=== PATIENT | female | born 1935 | race Caucasian/White ===

== ENCOUNTER 2022-04-28 10:54 | Outpatient (CLI) | payer MEDICARE, OTHER | END 2022-04-28 10:55 | disposition home or self-care (01) | LOC: BICRAD 10:54 | PROVIDERS: ATTEND Nurse Practitioner Family | DX: M54.2 Cervicalgia (principal); M54.6 Pain in thoracic spine; M54.50 Low back pain, unspecified; M43.12 Spondylolisthesis, cervical region; M47.812 Spondylosis without myelopathy or radiculopathy, cervical region; M47.814 Spondylosis without myelopathy or radiculopathy, thoracic region; M41.9 Scoliosis, unspecified; M47.816 Spondylosis without myelopathy or radiculopathy, lumbar region; M50.322 Other cervical disc degeneration at C5-C6 level; M89.38 Hypertrophy of bone, other site; M46.02 Spinal enthesopathy, cervical region; M46.04 Spinal enthesopathy, thoracic region; M51.35 Other intervertebral disc degeneration, thoracolumbar region | CPT/HCPCS: 72050; 72070; 72120 ==